=== PATIENT | female | born 1990 | race African-American/Black ===

== ENCOUNTER → 2020-02-01 | Outpatient (CLI) | payer MEDICAID ==
[~2020-02-01] MED LIST: CALC-1042 PO; FOLI0.4T2 PO; PNV1TABL76 PO
== END | disposition home or self-care (01) ==
LOC: LAB 11:45
PROVIDERS: ATTEND Obstetrics & Gynecology
DX: Z20.828 Contact with and (suspected) exposure to other viral communicable diseases (principal)
CPT/HCPCS: 87635; C9803

== ENCOUNTER 2020-02-06 00:20 | Inpatient (IN) | payer MEDICAID ==
[~2020-02-06] VITALS: Ht 149.9 cm; Wt 68.0 kg
[2020-02-06] MEDS ORDERED: DEXT 5%/LR + PITOCIN 20UNITS/L 1,000 ML IV SCH (01:16)
[2020-02-06] MEDS ORDERED: PNV1TABL76 PO (01:17)
[2020-02-06] MEDS ORDERED: CALC-1042 PO (01:17)
[2020-02-06] MEDS ORDERED: FOLI0.4T2 PO (01:17)
[2020-02-06] MEDS ORDERED: CARBOPROST TROMETHAMINE 250 MCG/ML AMPUL IM PRN (01:30)
[2020-02-06] MEDS ORDERED: METHYLERGONOVINE MALEATE 0.2 MG/ML IM PRN (01:30)
[2020-02-06 02:37] LABS: BASOPHILS % 0.3 % (0.0-2.0); HEMATOCRIT. 38.7 % (36.0-48.0); LYMPHOCYTES % 20.7 % (20.0-50.0); MEAN CORPUSCULAR HEMOGLOBIN 28.6 pg (28.0-32.0); MEAN CORPUSCULAR VOLUME 84.8 fL (81.0-99.0); MEAN PLATELET VOLUME 9.5 fl (7.4-10.4); MONOCYTES % 7.3 % (2.0-8.0); NEUTROPHILS % 69.7 % (40.0-76.0); PLATELET 169 x1000/uL (130-400); RED BLOOD CELL COUNT 4.57 mill/uL (4.2-5.4); RED CELL DISTRIBUTION WIDTH 14.6 % (11.6-14.6)
[2020-02-06 02:47] LABS: PARTIAL THROMBOPLASTIN TIME 27.1 sec (23.4-31.0); PROTHROMBIN TIME 10.3 sec (9.6-11.0)
[2020-02-06 02:49] LABS: *AMPHETAMINES SCREEN URINE NEGATIVE (NEGATIVE); *BARBITURATES SCREEN URINE NEGATIVE (NEGATIVE); *BENZODIAZEPINES SCREEN URINE NEGATIVE (NEGATIVE); *COCAINE SCREEN URINE NEGATIVE (NEGATIVE); METHADONE URINE SCREEN NEGATIVE (NEGATIVE); OPIATES URINE SCREEN NEGATIVE (NEGATIVE); PHENCYCLIDINE URINE SCREEN NEGATIVE (NEGATIVE)
[2020-02-06 02:50] LABS: CANNABINOID URINE SCREEN NEGATIVE (NEGATIVE)
[2020-02-06 03:09] LABS: CLARITY URINE CLEAR (CLEAR); COLOR URINE YELLOW (YELLOW); KETONES URINE NEGATIVE (NEGATIVE); LEUKOCYTE ESTERASE URINE NEGATIVE (NEGATIVE); NITRITE URINE NEGATIVE (NEGATIVE); OCCULT BLOOD URINE NEGATIVE (NEGATIVE); PROTEIN URINE NEGATIVE (NEGATIVE)
[2020-02-06 03:12] LABS: HEPATITIS B SURFACE ANTIGEN NEGATIVE
[2020-02-06] MEDS ORDERED: CEFAZOLIN SODIUM 1000MG/VIAL ONE (07:44)
[2020-02-06] MEDS ORDERED: FENTANYL CITRATE/PF 50MCG/ML 2ML VIAL ONE (07:44)
[2020-02-06] MEDS ORDERED: OXYTOCIN 10 UNITS/ML 1ML ONE ×2 (07:44→10:01)
[2020-02-06] MEDS ORDERED: ONDANSETRON HCL 4MG/2ML INJ ONE (07:44)
[2020-02-06] MEDS: LACTATED RINGERS 1,000 ML IV SCH ×3 (07:46→16:49)
[2020-02-06] MEDS ORDERED: CITRIC ACID/SODIUM CITRATE SOLN 30ML UDC PO SCH ×2 (08:00→08:15)
[2020-02-06] MEDS ORDERED: MORPHINE SULFATE/PF 1MG/ML 10ML AMP ONE (09:41)
[2020-02-06] MEDS ORDERED: KETOROLAC 60MG/2ML VIAL IM ONE (09:44)
[2020-02-06] MEDS ORDERED: DIPHENHYDRAMINE 50MG/ML VIAL ONE (09:44)
[2020-02-06 12:00] VITALS: BP 111/59
[2020-02-06] MEDS ORDERED: DIPHENHYDRAMINE 50MG/ML VIAL IV PRN ×2 (13:00→22:00)
[2020-02-06] MEDS ORDERED: NALOXONE HCL 0.4 MG/ML 1ML VIAL IV PRN (13:00)
[2020-02-06] MEDS ORDERED: BUTORPHANOL TARTRATE 2 MG/ML VIAL IV PRN (13:00)
[2020-02-06 15:00] VITALS: BP 110/53
[2020-02-06 19:50] VITALS: BP 108/64
[2020-02-06] MEDS: KETOROLAC 30MG/ML VIAL IV SCH (19:50)
[2020-02-07] VITALS: BP 110/65
[2020-02-07] MEDS ORDERED: KETOROLAC 30MG/ML VIAL IV SCH (02:15)
[2020-02-07] MEDS: KETOROLAC 30MG/ML VIAL IV SCH (02:25)
[2020-02-07 03:35] VITALS: BP 112/65
[2020-02-07 08:00] VITALS: BP 100/50
[2020-02-07] MEDS ORDERED: ACETAMINOPHEN WITH CODEINE 300/30MG TABLET PO PRN (13:30)
[2020-02-07] MEDS: IBUPROFEN 800MG TABLET PO PRN (13:35)
[2020-02-07 16:00] VITALS: BP 120/70
[2020-02-07 19:30] VITALS: BP 108/60
[2020-02-08] MEDS: IBUPROFEN 800MG TABLET PO PRN ×2 (03:33→12:06)
[2020-02-08 04:00] VITALS: BP 116/74
[2020-02-08 06:19] LABS: HEMATOCRIT 34.8 % (36.0-48.0); HEMOGLOBIN 11.7 g/dL (12.0-16.0); MEAN CORPUSCULAR HEMOGLOBIN 28.7 pg (28.0-32.0); MEAN CORPUSCULAR VOLUME 85.4 fL (81.0-99.0); PLATELET 169 x1000/uL (130-400); RED BLOOD CELL COUNT 4.08 mill/uL (4.2-5.4); RED CELL DISTRIBUTION WIDTH 14.8 % (11.6-14.6)
[2020-02-08 12:06] VITALS: BP 116/74
== END 2020-02-08 13:15 | disposition home or self-care (01) | DRG 540 ==
LOC: OBSVTOIN 00:20 → 8 EST LDRP 00:20 → 8EST 12:01
PROVIDERS: ADMIT Obstetrics & Gynecology; ATTEND Obstetrics & Gynecology
PROC: 10D00Z1 Extraction of Products of Conception, Low, Open Approach (ICD-10-PCS; principal; 2020-02-06)
DX: O34.211 Maternal care for low transverse scar from previous cesarean delivery (principal); Z37.0 Single live birth; Z3A.39 39 weeks gestation of pregnancy; Z82.49 Family history of ischemic heart disease and other diseases of the circulatory system; O99.02 Anemia complicating childbirth; D64.9 Anemia, unspecified
CPT/HCPCS: 36415; 80305; 81003; 85025; 85027; 86592; 86703; 86762; 86850; 86870; 86900; 87340; 88307; J0690; J1200; J1885; J2274; J2405; J3010; J7120